=== PATIENT | female | born 1965 | race Caucasian/White ===

== ENCOUNTER 2019-06-24 12:14 | Emergency (ER) | payer OTHER ==
--- NOTE | 2019-06-24 14:40 | Event Note ---
ED Screening Note ED Screening Note: states she was diagnosed with flu yesterday states she has been taking ibuprofen she is currently taking tamiflu, zpak, ibuprofen, and phenergan states she has a pounding headache and has not been able to get rid of the headache states she feels pressure no vision changes no numbness or unilateral weakness no pmhx no allergies to meds This initial assessment/diagnostic orders/clinical plan/treatment(s) is/are subject to change based on patients health status, clinical progression and re-assessment by fellow clinical providers in the ED. Further treatment and workup at subsequent clinical providers discretion. Patient/guardian urged not to elope from the ED as their condition may be serious if not clinically assessed and managed. Initial orders include: ACC eval/treatment
[2019-06-24] MEDS ORDERED: dexAMETHasone 4 MG/ML VIAL IM ONE (16:43)
[2019-06-24] MEDS ORDERED: KETOROLAC 60 MG/2 ML INJ IM ONE (16:43)
[2019-06-24] MEDS ORDERED: ONDANSETRON 4 MG ODT TAB PO ONE (16:43)
--- NOTE | 2019-06-24 16:47 | Emergency Department Report ---
ED Headache HPI - General Chief Complaint: Headache Stated Complaint: HEADACHE Time Seen by Provider: 06/24/19 14:37 Source: patient, RN notes reviewed Exam Limitations: no limitations - History of Present Illness Initial Comments: This is a 54-year-old female who presents to the emergency room with a migraine headache for 1 day. Patient states she was seen by her primary care doctor at [facility] on yesterday and diagnosed with influenza. She was told symptoms would improve after starting Tamiflu. Patient states body aches and chills improved but she continued to have a headache. She reports a history of migraines and kidney stones. She denies visual changes, dizziness, nausea, vomiting, or weakness. Timing/Duration: 24 hours Quality: throbbing Head Injury Location: occipital Recent Head Trauma: chronic headaches Associated Symptoms: denies symptoms Allergies/Adverse Reactions: Allergies No Known Allergies Allergy (Verified 11/27/15 21:22) Home Medications: Ambulatory Orders Acetaminophen/Codeine [Tylenol #3] 1 tab PO Q6H PRN #20 tab 12/03/13 Vits96/Iron Fum/Folic [ Tablet] 1 each PO QDAY 12/03/13 Ciprofloxacin HCl [Cipro] 500 mg PO Q12H #14 tab 07/15/14 HYDROcodone/ACETAMINOPHEN [[place] 7.5-325 mg TAB] 1 each PO Q6HR PRN #20 tablet 07/15/14 Ibuprofen [Motrin] 600 mg PO Q8H PRN #50 tablet 07/15/14 Acetaminophen/Codeine [Tylenol #3] 1 tab PO QHS #7 tablet 09/06/14 methOCARBAMOL [Robaxin] 500 mg PO BID #14 tab 09/06/14 HYDROcodone/APAP 5-325 [[place] 5/325] 1 each PO Q6HR PRN #20 tablet 09/07/14 Ibuprofen [Motrin] 600 mg PO Q8H PRN #30 tab 09/07/14 Promethazine [Phenergan] 25 mg PO Q6H PRN #20 tablet 09/07/14 HYDROcodone/APAP 10-325 [[place] 10/325] 1 each PO Q6HR PRN #12 tablet 10/03/14 Butalbit/Acetamin/Caff/Codeine [Fioricet-Cod 79-254-53-30 Cap] 1 each PO Q6H #14 capsule 11/02/14 Ibuprofen [Motrin] 800 mg PO Q8H PRN #30 tablet 11/02/14 Promethazine [Phenergan] 25 mg PO Q6H PRN #20 tablet 11/02/14 Metoclopramide [Reglan] 10 mg PO TID PRN #14 tab 04/04/15 traMADoL [Ultram] 50 mg PO Q6HR PRN #14 tablet 04/04/15 Promethazine [Phenergan] 25 mg PO Q6H PRN #12 tablet 11/27/15 Oseltamivir [Tamiflu] 75 mg PO BID #10 cap 04/21/16 Butalb/Acetaminophen/Caffeine [Fioricet 50-300-40 mg CAP] 1 cap PO Q8HR PRN #12 cap 06/24/19 ED Review of Systems ROS: Stated complaint: HEADACHE Other details as noted in HPI Constitutional: denies: chills, fever ENT: congestion. denies: ear pain, throat pain Respiratory: denies: cough, shortness of breath, wheezing Cardiovascular: denies: chest pain, palpitations Gastrointestinal: denies: abdominal pain, nausea, diarrhea Musculoskeletal: denies: back pain, joint swelling, arthralgia Skin: denies: rash, lesions Neurological: headache. denies: weakness, paresthesias Psychiatric: denies: anxiety, depression ED Past Medical Hx - Past Medical History Hx Hypertension: No Hx CVA: No Hx Heart Attack/AMI: No Hx Congestive Heart Failure: No Hx Diabetes: No Hx Deep Vein Thrombosis: No Hx Pulmonary Embolism: No Hx GERD: No Hx Liver Disease: No Hx Renal Disease: No Hx Sickle Cell Disease: No Hx Arthritis: No Hx Headaches / Migraines: Yes (MIGRAINE) Hx Seizures: No Hx Kidney Stones: Yes Hx Psychiatric Treatment: No Hx Asthma: No Hx COPD: No Hx Tuberculosis: No Hx Dementia: No Hx HIV: No - Surgical History Hx Coronary Stent: No Hx Open Heart Surgery: No Hx Pacemaker: No Hx Internal Defibrillator: No Hx Cholecystectomy: No Hx Appendectomy: No Hx Breast Surgery: No Additional Surgical History: c section x 4 - Social History Smoking Status: Never Smoker Substance Use Type: None - Medications Home Medications: Home Medications Medication Instructions Recorded Confirmed Last Taken Type Acetaminophen/Codeine [Tylenol #3] 1 tab PO Q6H PRN #20 tab 12/03/13 Unknown Rx Vits96/Iron Fum/Folic 1 each PO QDAY 12/03/13 12/03/13 Unknown History [ Tablet] Ciprofloxacin HCl [Cipro] 500 mg PO Q12H #14 tab 07/15/14 Unknown Rx HYDROcodone/ACETAMINOPHEN [[place] 1 each PO Q6HR PRN #20 tablet 07/15/14 Unknown Rx 7.5-325 mg TAB] Ibuprofen [Motrin] 600 mg PO Q8H PRN #50 tablet 07/15/14 Unknown Rx Acetaminophen/Codeine [Tylenol #3] 1 tab PO QHS #7 tablet 09/06/14 Unknown Rx methOCARBAMOL [Robaxin] 500 mg PO BID #14 tab 09/06/14 Unknown Rx HYDROcodone/APAP 5-325 [[place] 1 each PO Q6HR PRN #20 tablet 09/07/14 Unknown Rx 5/325] Ibuprofen [Motrin] 600 mg PO Q8H PRN #30 tab 09/07/14 Unknown Rx Promethazine [Phenergan] 25 mg PO Q6H PRN #20 tablet 09/07/14 Unknown Rx HYDROcodone/APAP 10-325 [[place] 1 each PO Q6HR PRN #12 tablet 10/03/14 Unknown Rx 10/325] Butalbit/Acetamin/Caff/Codeine 1 each PO Q6H #14 capsule 11/02/14 Unknown Rx [Fioricet-Cod 64-647-99-30 Cap] Ibuprofen [Motrin] 800 mg PO Q8H PRN #30 tablet 11/02/14 Unknown Rx Promethazine [Phenergan] 25 mg PO Q6H PRN #20 tablet 11/02/14 Unknown Rx Metoclopramide [Reglan] 10 mg PO TID PRN #14 tab 04/04/15 Unknown Rx traMADoL [Ultram] 50 mg PO Q6HR PRN #14 tablet 04/04/15 Unknown Rx Promethazine [Phenergan] 25 mg PO Q6H PRN #12 tablet 11/27/15 Unknown Rx Oseltamivir [Tamiflu] 75 mg PO BID #10 cap 04/21/16 Unknown Rx Butalb/Acetaminophen/Caffeine 1 cap PO Q8HR PRN #12 cap 06/24/19 Unknown Rx [Fioricet 50-300-40 mg CAP] ED Physical Exam - General Limitations: No Limitations General appearance: alert, in no apparent distress, obese - ENT ENT exam: Present: normal orophraynx, mucous membranes moist, TM's normal bilat erally, normal external ear exam, other (Turb[place] congested with clear discharge) - Respiratory Respiratory exam: Present: normal lung sounds bilaterally. Absent: respiratory distress - Cardiovascular Cardiovascular Exam: Present: regular rate, normal rhythm. Absent: systolic murmur, diastolic murmur, rubs, gallop - GI/Abdominal GI/Abdominal exam: Present: soft, normal bowel sounds. Absent: distended, tenderness, guarding, rebound, rigid - Extremities Exam Extremities exam: Present: normal inspection - Neurological Exam Neurological exam: Present: alert, oriented X3, normal gait - Psychiatric Psychiatric exam: Present: normal affect, normal mood - Skin Skin exam: Present: warm, dry, intact, normal color. Absent: rash ED Course Vital Signs 06/24/19 06/24/19 12:21 18:00 Temperature 98.2 F 98.1 F Pulse Rate 79 76 Respiratory 17 18 Rate Blood Pressure 138/83 Blood Pressure 118/82 [Right] O2 Sat by Pulse 97 100 Oximetry ED Medical Decision Making - Medical Decision Making This is a 54 y.o. female that presents with headache for 1 day. History of migraines. Patient is stable and was examined by me. Recently diagnosed with influenza yesterday by PCP is outside medical clinic. There is mild congestion on exam. Vitals are stable and patient in no acute distress. Based on history and normal neurological exam there is low suspicion for intracranial tumor, intracranial bleeding, meningitis, or glaucoma. Imaging and labs deferred at this time. Given toradol, zofran, and dexamethasone in ER. This is most likely a benign headache. Start Fioricet for migraines. Continue tamiflu and medications prescribed by PCP for comfort of influenza. Instructed to purchase nasal saline and or Flonase for congestion. Follow-up with PCP. Given strict return instructions. Discharged home in stable condition. - Differential Diagnosis intracranial tumor, intracranial bleeding, meningitis, or glaucoma Critical care attestation.: If time is entered above; I have spent that time in minutes in the direct care of this critically ill patient, excluding procedure time. ED Disposition Clinical Impression: Migraine Qualifiers: Migraine type: without aura Status migrainosus presence: with status migrainosus Intractability: not intractable Qualified Code(s): G43.001 - Migraine without aura, not intractable, with status migrainosus Disposition: DC- TO HOME OR SELFCARE Is pt being admited?: No Condition: Stable Instructions: Migraine Headache (ED) Additional Instructions: Take medication at start of headache. Moderate caffeine intake. Eat at scheduled times or 3 meals a day with snacks. For your congestion you can purchase nasal saline and Flonase [id number]. Follow up with primary care provider in 24-72 hours. Prescriptions: Butalb/Acetaminophen/Caffeine [Fioricet 50-300-40 mg CAP] 1 cap PO Q8HR PRN #12 cap PRN Reason: Migraine Headache Referrals: JACKIE BAUM MD [Primary Care Provider] - 3-5 Days Forms: Work/School Release Form(ED) Time of Disposition: 17:34
[2019-06-24 18:01] VITALS: BP 118/82
== END 2019-06-24 18:01 | disposition home or self-care (01) ==
LOC: ED 12:14
DX: G43.909 Migraine, unspecified, not intractable, without status migrainosus (principal); J11.1 Influenza due to unidentified influenza virus with other respiratory manifestations; Z79.899 Other long term (current) drug therapy; Z87.442 Personal history of urinary calculi
CPT/HCPCS: 93005; 93010; 96372; 99282; J1100; J1885; Q0162

== ENCOUNTER 2020-09-07 22:57 | Emergency (ER) | payer SELFPAY ==
[2020-09-08] MEDS ORDERED: ACETAMINOPHEN 500 MG TAB PO ONE (03:17)
[2020-09-08] MEDS ORDERED: dexAMETHasone 20 MG/5 ML VIAL IM ONE (03:17)
[2020-09-08] MEDS ORDERED: diphenhydrAMINE 25 MG CAP PO ONE (03:17)
[2020-09-08] MEDS ORDERED: METOCLOPRAMIDE 10 MG TAB PO ONE (03:17)
--- NOTE | 2020-09-08 03:23 | Emergency Department Report ---
ED Headache HPI - General Chief Complaint: Headache Stated Complaint: HEADACHE Time Seen by Provider: 09/08/20 03:18 - History of Present Illness Initial Comments: Patient is a 55-year-old female with history of migraine headache who presents for headache x2 days. Patient describes headache as 510 aching sharp frontal. This is usual location, duration, and intensity of all previous headaches. There is intermittent nausea no vomiting no photophobia. Patient remains alert and oriented x3 ambulatory with steady gait patient drove self to ED tonight. There has been no fevers or chills. There are no other exacerbating or r elieving factors. Allergies/Adverse Reactions: Allergies No Known Allergies Allergy (Verified 11/27/15 21:22) Home Medications: Ambulatory Orders Acetaminophen/Codeine [Tylenol #3] 1 tab PO Q6H PRN #20 tab 12/03/13 Vits96/Iron Fum/Folic [ Tablet] 1 each PO QDAY 12/03/13 Ciprofloxacin HCl [Cipro] 500 mg PO Q12H #14 tab 07/15/14 HYDROcodone/ACETAMINOPHEN [[place] 7.5-325 mg TAB] 1 each PO Q6HR PRN #20 tablet 07/15/14 Ibuprofen [Motrin] 600 mg PO Q8H PRN #50 tablet 07/15/14 Acetaminophen/Codeine [Tylenol #3] 1 tab PO QHS #7 tablet 09/06/14 methOCARBAMOL [Robaxin] 500 mg PO BID #14 tab 09/06/14 HYDROcodone/APAP 5-325 [[place] 5/325] 1 each PO Q6HR PRN #20 tablet 09/07/14 Ibuprofen [Motrin] 600 mg PO Q8H PRN #30 tab 09/07/14 Promethazine [Phenergan] 25 mg PO Q6H PRN #20 tablet 09/07/14 HYDROcodone/APAP 10-325 [[place] 10/325] 1 each PO Q6HR PRN #12 tablet 10/03/14 Butalbit/Acetamin/Caff/Codeine [Fioricet-Cod 80-861-27-30 Cap] 1 each PO Q6H #14 capsule 11/02/14 Ibuprofen [Motrin] 800 mg PO Q8H PRN #30 tablet 11/02/14 Promethazine [Phenergan] 25 mg PO Q6H PRN #20 tablet 11/02/14 Metoclopramide [Reglan] 10 mg PO TID PRN #14 tab 04/04/15 traMADoL [Ultram] 50 mg PO Q6HR PRN #14 tablet 04/04/15 Promethazine [Phenergan] 25 mg PO Q6H PRN #12 tablet 11/27/15 Oseltamivir [Tamiflu] 75 mg PO BID #10 cap 04/21/16 Butalb/Acetaminophen/Caffeine [Fioricet 50-300-40 mg CAP] 1 cap PO Q8HR PRN #12 cap 06/24/19 Acetaminophen [Acetaminophen TAB] 1,000 mg PO Q6HR PRN #60 tablet 09/08/20 Metoclopramide [Reglan] 10 mg PO Q6H PRN #30 tablet 09/08/20 diphenhydrAMINE [Benadryl CAP] 25 mg PO Q6HR PRN #30 capsule 09/08/20 ED Review of Systems ROS: Stated complaint: HEADACHE Other details as noted in HPI Constitutional: denies: chills, fever Eyes: denies: eye pain, eye discharge, vision change ENT: denies: ear pain, throat pain Respiratory: denies: cough, shortness of breath, wheezing Cardiovascular: denies: chest pain, palpitations Endocrine: no symptoms reported Gastrointestinal: denies: abdominal pain, nausea, diarrhea Genitourinary: denies: urgency, dysuria, discharge Musculoskeletal: denies: back pain, joint swelling, arthralgia Skin: denies: rash, lesions Neurological: headache. denies: weakness, paresthesias, vertigo Psychiatric: denies: anxiety, depression Hematological/Lymphatic: denies: easy bleeding, easy bruising ED Past Medical Hx - Past Medical History Previous Medical History?: Yes Hx Hypertension: No Hx CVA: No Hx Heart Attack/AMI: No Hx Congestive Heart Failure: No Hx Diabetes: No Hx Deep Vein Thrombosis: No Hx Pulmonary Embolism: No Hx GERD: No Hx Liver Disease: No Hx Renal Disease: No Hx Sickle Cell Disease: No Hx Arthritis: No Hx Headaches / Migraines: Yes (MIGRAINE) Hx Seizures: No Hx Kidney Stones: Yes Hx Psychiatric Treatment: No Hx Asthma: No Hx COPD: No Hx Tuberculosis: No Hx Dementia: No Hx HIV: No - Surgical History Past Surgical History?: Yes Hx Coronary Stent: No Hx Open Heart Surgery: No Hx Pacemaker: No Hx Internal Defibrillator: No Hx Cholecystectomy: No Hx Appendectomy: No Hx Breast Surgery: No Additional Surgical History: c section x 4 - Social History Smoking Status: Never Smoker Substance Use Type: None - Medications Home Medications: Home Medications Medication Instructions Recorded Confirmed Last Taken Type Acetaminophen/Codeine [Tylenol #3] 1 tab PO Q6H PRN #20 tab 12/03/13 Unknown Rx Vits96/Iron Fum/Folic 1 each PO QDAY 12/03/13 12/03/13 Unknown History [ Tablet] Ciprofloxacin HCl [Cipro] 500 mg PO Q12H #14 tab 07/15/14 Unknown Rx HYDROcodone/ACETAMINOPHEN [[place] 1 each PO Q6HR PRN #20 tablet 07/15/14 Unknown Rx 7.5-325 mg TAB] Ibuprofen [Motrin] 600 mg PO Q8H PRN #50 tablet 07/15/14 Unknown Rx Acetaminophen/Codeine [Tylenol #3] 1 tab PO QHS #7 tablet 09/06/14 Unknown Rx methOCARBAMOL [Robaxin] 500 mg PO BID #14 tab 09/06/14 Unknown Rx HYDROcodone/APAP 5-325 [[place] 1 each PO Q6HR PRN #20 tablet 09/07/14 Unknown Rx 5/325] Ibuprofen [Motrin] 600 mg PO Q8H PRN #30 tab 09/07/14 Unknown Rx Promethazine [Phenergan] 25 mg PO Q6H PRN #20 tablet 09/07/14 Unknown Rx HYDROcodone/APAP 10-325 [[place] 1 each PO Q6HR PRN #12 tablet 10/03/14 Unknown Rx 10/325] Butalbit/Acetamin/Caff/Codeine 1 each PO Q6H #14 capsule 11/02/14 Unknown Rx [Fioricet-Cod 94-366-06-30 Cap] Ibuprofen [Motrin] 800 mg PO Q8H PRN #30 tablet 11/02/14 Unknown Rx Promethazine [Phenergan] 25 mg PO Q6H PRN #20 tablet 11/02/14 Unknown Rx Metoclopramide [Reglan] 10 mg PO TID PRN #14 tab 04/04/15 Unknown Rx traMADoL [Ultram] 50 mg PO Q6HR PRN #14 tablet 04/04/15 Unknown Rx Promethazine [Phenergan] 25 mg PO Q6H PRN #12 tablet 11/27/15 Unknown Rx Oseltamivir [Tamiflu] 75 mg PO BID #10 cap 04/21/16 Unknown Rx Butalb/Acetaminophen/Caffeine 1 cap PO Q8HR PRN #12 cap 06/24/19 Unknown Rx [Fioricet 50-300-40 mg CAP] Acetaminophen [Acetaminophen TAB] 1,000 mg PO Q6HR PRN #60 tablet 09/08/20 Unknown Rx Metoclopramide [Reglan] 10 mg PO Q6H PRN #30 tablet 09/08/20 Unknown Rx diphenhydrAMINE [Benadryl CAP] 25 mg PO Q6HR PRN #30 capsule 09/08/20 Unknown Rx ED Physical Exam - General Limitations: No Limitations General appearance: alert, in no apparent distress - Head Head exam: Present: normocephalic, normal inspection - Eye Eye exam: Present: normal appearance, PERRL, EOMI Pupils: Present: normal accommodation - ENT ENT exam: Present: mucous membranes moist - Neck Neck exam: Present: normal inspection, full ROM. Absent: tenderness - Respiratory Respiratory exam: Present: normal lung sounds bilaterally. Absent: respiratory distress, wheezes - Cardiovascular Cardiovascular Exam: Present: regular rate, normal rhythm, normal heart sounds. Absent: systolic murmur, diastolic murmur, rubs, gallop - GI/Abdominal GI/Abdominal exam: Present: soft, normal bowel sounds. Absent: distended, tenderness - Rectal Rectal exam: Present: deferred - Extremities Exam Extremities exam: Present: normal inspection, full ROM - Back Exam Back exam: Present: normal inspection, full ROM. Absent: tenderness, vertebral tenderness - Neurological Exam Neurological exam: Present: alert, oriented X3, CN II-XII intact, normal gait, reflexes normal. Absent: motor sensory deficit - Expanded Neurological Exam Expanded Patient oriented to: Present: place, time Speech: Present: fluid speech Cranial nerves: EOM's Intact: Normal Motor strength exam: RUE: 5, LUE: 5, RLE: 5, LLE: 5 Best Eye Response ([place]): (4) open spontaneously Best Motor Response ([place]): (6) obeys commands Best Verbal Response ([place]): (5) oriented [place] Total: 15 - Psychiatric Psychiatric exam: Present: normal affect, normal mood - Skin Skin exam: Present: warm, dry, intact, normal color. Absent: rash ED Course Vital Signs 09/08/20 00:36 Temperature 98.4 F Pulse Rate 70 Respiratory 16 Rate Blood Pressure 145/84 O2 Sat by Pulse 98 Oximetry ED Medical Decision Making - Medical Decision Making Headache is improved with 2 TM perforation. There is no decrease in vision, no dizziness, no lightheadedness, no nausea vomiting at this time. Plan DC to home with prescriptions. Follow-up with primary care doctor as scheduled. Return to emergency department should symptoms worsen. Patient verbalized agreement and understanding with discharge plan. Patient DC'd home in stable condition at this time. Critical care attestation.: If time is entered above; I have spent that time in minutes in the direct care of this critically ill patient, excluding procedure time. ED Disposition Clinical Impression: Headache Qualifiers: Headache type: tension-type Headache chronicity pattern: unspecified pattern Intractability: not intractable Qualified Code(s): G44.209 - Tension-type headache, unspecified, not intractable Acute headache Qualifiers: Headache type: unspecified Intractability: intractable Qualified Code(s): R51.9 - Headache, unspecified Migraine Qualifiers: Migraine type: without aura Status migrainosus presence: without status migrainosus Intractability: not intractable Qualified Code(s): G43.009 - Migraine without aura, not intractable, without status migrainosus Disposition: DC-01 TO HOME OR SELFCARE Is pt being admited?: No Does the pt Need Aspirin: No Condition: Stable Prescriptions: Acetaminophen [Acetaminophen TAB] 1,000 mg PO Q6HR PRN #60 tablet PRN Reason: Headache diphenhydrAMINE [Benadryl CAP] 25 mg PO Q6HR PRN #30 capsule PRN Reason: Headache Metoclopramide [Reglan] 10 mg PO Q6H PRN #30 tablet PRN Reason: Headache Referrals: DAISY SILVA MD [Referring] - 3-5 Days Forms: Work/School Release Form(ED) Time of Disposition: 04:02
[2020-09-08 04:52] VITALS: BP 128/68
== END 2020-09-08 04:52 | disposition home or self-care (01) ==
LOC: ED 22:57
DX: G43.909 Migraine, unspecified, not intractable, without status migrainosus (principal); Z79.899 Other long term (current) drug therapy
CPT/HCPCS: 96372; 99282; J1100